=== PATIENT | female | born 1930 | race Caucasian/White ===

== ENCOUNTER 2017-01-15 12:44 | Outpatient (CLI) | payer MEDICAID, MEDICARE, OTHER | END 2017-01-15 12:45 | disposition home or self-care (01) | DX: N18.9 Chronic kidney disease, unspecified (principal) ==

== ENCOUNTER 2017-01-30 13:33 | Observation (INO) | payer MEDICARE, MEDICAID ==
[2017-01-30] MEDS ORDERED: SODIUM CHLORIDE 0.9% 1,000 ML IV ONE (14:29)
[2017-01-30] MEDS ORDERED: CALCIUM GLUCONATE 1000 MG/10 ML VIAL IVP STA (15:20)
[2017-01-30] MEDS ORDERED: SODIUM POLYSTYRENE SULFONATE 15 GM/60 ML BOTTLE PO STA (15:20)
[2017-01-30] MEDS ORDERED: CALCIUM GLUCONATE 1000 MG/10 ML VIAL ONE (15:25)
[2017-01-30] MEDS ORDERED: SODIUM POLYSTYRENE SULFONATE 15 GM/60 ML BOTTLE ONE (15:25)
[2017-01-30] MEDS ORDERED: INSULIN REGULAR HUMAN 100 UNIT/1 ML 10 ML MDV IVP STA (15:52)
[2017-01-30] MEDS ORDERED: DEXTROSE 50% ABBOJECT 25 GM/50 ML SYRINGE IVP STA ×2 (15:52→18:44)
[2017-01-30] MEDS ORDERED: DEXTROSE 50% ABBOJECT 25 GM/50 ML SYRINGE ONE ×3 (16:05→18:43)
[2017-01-30] MEDS ORDERED: INSULIN REGULAR HUMAN 100 UNIT/1 ML 10 ML MDV ONE (16:05)
[2017-01-30] MEDS ORDERED: oxyCODONE 5 MG TABLET PO PRN (20:05)
[2017-01-30] MEDS ORDERED: PROCHLORPERAZINE 10 MG/2 ML VIAL IVP PRN (20:05)
[2017-01-30] MEDS ORDERED: SODIUM CHLORIDE FLUSH 0.9% 10 ML SYRINGE IVP PRN (20:05)
[2017-01-30] MEDS ORDERED: ACETAMINOPHEN 325 MG TABLET PO PRN (20:05)
[2017-01-30] MEDS ORDERED: ONDANSETRON 4 MG/2 ML VIAL IVP PRN (20:05)
[2017-01-30] MEDS ORDERED: DEXTROSE 5%-0.9% NACL 1,000 ML IV SCH (21:00)
[2017-01-30] MEDS: HEPARIN 5,000 UNIT/ML VIAL SUBQ SCH (21:45)
[2017-01-30] MEDS: amLODIPine 5 MG TABLET PO SCH (21:48)
[2017-01-30] MEDS: hydrALAZINE 25 MG TABLET PO SCH (21:48)
[2017-01-30] MEDS: SODIUM CHLORIDE FLUSH 0.9% 10 ML SYRINGE IVP SCH (21:48)
[2017-01-30] MEDS: METOPROLOL TARTRATE 50 MG TABLET PO SCH (21:50)
[2017-01-31] MEDS: SODIUM CHLORIDE FLUSH 0.9% 10 ML SYRINGE IVP SCH ×2 (05:57→15:50)
[2017-01-31] MEDS ORDERED: MAGNESIUM SULFATE 2 GRAM 50 ML IV ONE (06:49)
[2017-01-31] MEDS ORDERED: PANTOPRAZOLE 40 MG TABLET PO SCH (07:00)
[2017-01-31] MEDS: amLODIPine 5 MG TABLET PO SCH (08:35)
[2017-01-31] MEDS: METOPROLOL TARTRATE 50 MG TABLET PO SCH (08:35)
[2017-01-31] MEDS: hydrALAZINE 25 MG TABLET PO SCH (08:35)
[2017-01-31] MEDS: HEPARIN 5,000 UNIT/ML VIAL SUBQ SCH (08:39)
[2017-01-31] MEDS ORDERED: BUDESONIDE NAS SCH (09:00)
[2017-01-31] MEDS ORDERED: ASPIRIN CHEW 81 MG TABLET PO SCH (09:00)
[2017-01-31] MEDS ORDERED: POLYETHYLENE GLYCOL 3350 17 GM PACKET PO SCH (09:00)
[2017-01-31] MEDS ORDERED: CALCIUM CARBONATE CHEW 500 MG TABLET PO SCH ×2 (09:00→17:00)
[2017-01-31] MEDS ORDERED: LORATADINE 10 MG TABLET PO SCH (11:00)
[2017-01-31] MEDS ORDERED: ACETAMINOPHEN 325 MG TABLET PO SCH (11:00)
[2017-01-31] MEDS ORDERED: SODIUM BICARBONATE 650 MG TABLET PO SCH (11:00)
[2017-01-31] MEDS ORDERED: FERROUS SULFATE 325 MG TABLET PO SCH (11:00)
== END 2017-01-31 17:49 ==
DX: R41.82 Altered mental status, unspecified (principal); I12.0 Hypertensive chronic kidney disease with stage 5 chronic kidney disease or end stage renal disease; E87.5 Hyperkalemia; E11.22 Type 2 diabetes mellitus with diabetic chronic kidney disease; N18.5 Chronic kidney disease, stage 5; R44.3 Hallucinations, unspecified; R51 Headache; R45.1 Restlessness and agitation; E11.649 Type 2 diabetes mellitus with hypoglycemia without coma; E86.0 Dehydration; Z66 Do not resuscitate; Z79.82 Long term (current) use of aspirin; Z88.6 Allergy status to analgesic agent; Z88.0 Allergy status to penicillin
CPT/HCPCS: 36415; 70450; 71020; 80048; 80053; 81003; 82310; 83690; 83735; 84100; 85025; 96361; 96365; 96372; 96375; 96376; 99285; A9270; G0378; J1815

== ENCOUNTER 2017-02-07 20:20 | Outpatient (CLI) | payer MEDICARE, MEDICAID | END 2017-02-07 20:21 | disposition home or self-care (01) | DX: N39.0 Urinary tract infection, site not specified (principal) ==

== ENCOUNTER 2017-02-08 13:50 | Outpatient (CLI) | payer MEDICARE, MEDICAID | END 2017-02-08 13:51 | disposition home or self-care (01) | DX: E11.9 Type 2 diabetes mellitus without complications (principal); I50.9 Heart failure, unspecified; N18.9 Chronic kidney disease, unspecified ==

== ENCOUNTER 2017-02-22 17:09 | Outpatient (CLI) | payer MEDICARE, MEDICAID | END 2017-02-22 17:10 | disposition critical access hospital (66) | DX: R10.30 Lower abdominal pain, unspecified (principal) | CPT/HCPCS: A0425; A0429 ==

== ENCOUNTER 2017-02-22 17:14 | Emergency (ER) | payer MEDICARE, MEDICAID | END 2017-02-22 19:48 | disposition home or self-care (01) | DX: S76.012A Strain of muscle, fascia and tendon of left hip, initial encounter (principal); E11.9 Type 2 diabetes mellitus without complications; Z88.0 Allergy status to penicillin; Z79.82 Long term (current) use of aspirin; W19.XXXA Unspecified fall, initial encounter; Z96.643 Presence of artificial hip joint, bilateral ==

== ENCOUNTER 2017-02-23 07:45 | Outpatient (CLI) | payer MEDICARE, MEDICAID | END 2017-02-23 07:46 | disposition home or self-care (01) | DX: E87.5 Hyperkalemia (principal); E11.9 Type 2 diabetes mellitus without complications ==

== ENCOUNTER 2017-02-27 10:19 | Outpatient (CLI) | payer MEDICARE, MEDICAID | END 2017-02-27 10:20 | disposition home or self-care (01) | DX: E87.5 Hyperkalemia (principal) ==

== ENCOUNTER 2017-03-09 09:05 | Outpatient (CLI) | payer MEDICARE, MEDICAID | END 2017-03-09 09:06 | disposition home or self-care (01) | DX: N18.9 Chronic kidney disease, unspecified (principal); D63.1 Anemia in chronic kidney disease ==

== ENCOUNTER 2017-03-26 19:57 | Outpatient (CLI) | payer MEDICARE, MEDICAID | END 2017-03-26 19:58 | disposition home or self-care (01) | DX: N18.9 Chronic kidney disease, unspecified (principal) ==

== ENCOUNTER 2017-03-29 12:15 | Outpatient (CLI) | payer MEDICARE, MEDICAID | END 2017-03-29 12:16 | DX: D64.9 Anemia, unspecified (principal) ==

== ENCOUNTER 2017-04-16 08:00 | Outpatient (CLI) | payer MEDICAID, MEDICARE, OTHER ==
[2017-04-16 14:47] LABS: CREATININE 3.6 mg/dL (0.4-1.0); POTASSIUM 4.6 mmol/L (3.5-5.0)
== END 2017-04-16 08:01 | disposition home or self-care (01) ==
LOC: LAB.R 08:00
DX: N18.9 Chronic kidney disease, unspecified (principal)
CPT/HCPCS: 80048

== ENCOUNTER 2017-06-13 15:20 | Outpatient (CLI) | payer MEDICARE, MEDICAID ==
[2017-06-13 17:42] LABS: BASOPHILS # (AUTO) 0.1 10^3/uL (0.0-0.1); BASOPHILS % (AUTO) 0.9 %; EOSINOPHILS # (AUTO) 0.3 10^3/uL (0.0-0.7); HCT - HEMATOCRIT 27.3 % (37.0-47.0); LYMPHOCYTES # (AUTO) 2.6 10^3/uL (1.5-3.5); LYMPHOCYTES % (AUTO) 26.1 %; MEAN CORPUSCULAR HEMOGLOBIN 32.7 pg (27.0-31.0); MEAN CORPUSCULAR HGB CONC 32.9 g/dL (32.0-36.0); MEAN CORPUSCULAR VOLUME 99.7 fL (81.0-99.0); MEAN PLATELET VOLUME 8.7 fL (7.9-10.8); MONOCYTES # (AUTO) 0.9 10^3/uL (0.0-1.0); MONOCYTES % (AUTO) 8.9 %; NEUTROPHILS # (AUTO) 6.2 10^3/uL (1.5-6.6); NEUTROPHILS % (AUTO) 61.1 %; NUCLEATED RED BLOOD CELLS AUTO 0.1 /100WBC; RED BLOOD COUNT 2.74 10^6/uL (4.20-5.40); RED CELL DISTRIBUTION WIDTH 13.4 % (12.0-15.0); UNCORRECTED WHITE BLOOD COUNT 10.1 x10^3/uL; WHITE BLOOD COUNT 10.1 x10^3/uL (4.8-10.8)
[2017-06-13 18:07] LABS: CREATININE 3.7 mg/dL (0.4-1.0)
[2017-06-13 18:08] LABS: POTASSIUM 6.1 mmol/L (3.5-5.0)
[2017-06-13 18:33] LABS: PHOSPHORUS 4.8 mg/dL (2.5-4.6)
== END 2017-06-13 23:59 | disposition home or self-care (01) ==
LOC: LAB.R 15:20
DX: N05.9 Unspecified nephritic syndrome with unspecified morphologic changes (principal); D50.0 Iron deficiency anemia secondary to blood loss (chronic); E83.30 Disorder of phosphorus metabolism, unspecified; N25.81 Secondary hyperparathyroidism of renal origin
CPT/HCPCS: 80048; 82728; 83540; 83970; 84100; 84466; 85025

== ENCOUNTER 2017-07-11 11:30 | Outpatient (CLI) | payer MEDICARE, MEDICAID ==
[2017-07-11 12:06] LABS: HCT - HEMATOCRIT 30.8 % (37.0-47.0); HGB - HEMOGLOBIN 10.4 g/dL (12.0-16.0); MEAN CORPUSCULAR HEMOGLOBIN 32.6 pg (27.0-31.0); MEAN CORPUSCULAR HGB CONC 33.6 g/dL (32.0-36.0); MEAN CORPUSCULAR VOLUME 96.9 fL (81.0-99.0); MEAN PLATELET VOLUME 8.7 fL (7.9-10.8); RED BLOOD COUNT 3.18 10^6/uL (4.20-5.40); RED CELL DISTRIBUTION WIDTH 13.6 % (12.0-15.0); WHITE BLOOD COUNT 10.7 x10^3/uL (4.8-10.8)
[2017-07-11 12:38] LABS: CALCIUM 6.6 mg/dL (8.5-10.3); CREATININE 2.8 mg/dL (0.4-1.0); MAGNESIUM 1.3 mg/dL (1.7-2.8)
[2017-07-11 12:39] LABS: POTASSIUM 2.4 mmol/L (3.5-5.0)
== END 2017-07-11 11:31 | disposition home or self-care (01) ==
LOC: LAB.R 11:30
DX: N18.9 Chronic kidney disease, unspecified (principal); D63.1 Anemia in chronic kidney disease
CPT/HCPCS: 80048; 83735; 84100

== ENCOUNTER 2017-07-25 08:00 | Outpatient (CLI) | payer MEDICARE, MEDICAID ==
[2017-07-25 23:56] LABS: CALCIUM 7.2 mg/dL (8.5-10.3); CREATININE 2.4 mg/dL (0.4-1.0); POTASSIUM 2.6 mmol/L (3.5-5.0)
== END 2017-07-25 08:01 | disposition home or self-care (01) ==
LOC: LAB.R 08:00
DX: E87.6 Hypokalemia (principal)
CPT/HCPCS: 80048

== ENCOUNTER 2017-08-01 19:30 | Outpatient (CLI) | payer MEDICARE, MEDICAID ==
[2017-08-01 23:06] LABS: CALCIUM 8.5 mg/dL (8.5-10.3); CREATININE 2.9 mg/dL (0.4-1.0)
== END 2017-08-01 19:31 | disposition home or self-care (01) ==
LOC: LAB.R 19:30
PROVIDERS: ATTEND Internal Medicine
DX: I10 Essential (primary) hypertension (principal)
CPT/HCPCS: 80048

== ENCOUNTER 2017-08-17 13:00 | Outpatient (CLI) | payer MEDICARE, MEDICAID ==
[2017-08-17 15:46] LABS: CALCIUM 8.2 mg/dL (8.5-10.3); CREATININE 3.4 mg/dL (0.4-1.0)
== END 2017-08-17 13:01 | disposition home or self-care (01) ==
LOC: LAB.R 13:00
DX: N18.9 Chronic kidney disease, unspecified (principal); R79.89 Other specified abnormal findings of blood chemistry
CPT/HCPCS: 80048

== ENCOUNTER 2017-08-24 10:18 | Outpatient (CLI) | payer MEDICARE, MEDICAID ==
[2017-08-24 09:55] LABS: CALCIUM 8.1 mg/dL (8.5-10.3); CREATININE 3.6 mg/dL (0.4-1.0); POTASSIUM 4.4 mmol/L (3.5-5.0)
== END 2017-08-24 10:19 | disposition home or self-care (01) ==
LOC: LAB.R 10:18
DX: E87.6 Hypokalemia (principal)
CPT/HCPCS: 80048

== ENCOUNTER 2017-08-27 14:54 | Outpatient (CLI) | payer MEDICARE, MEDICAID ==
--- NOTE | 2017-08-27 15:49 | XRAY Report ---
RIGHT HIP AND PELVIS: 08/27/2017 CLINICAL INDICATION: Pain. COMPARISON: 02/22/2017 FINDINGS: Frontal view of the hips and pelvis and frogleg lateral view of the right hip demonstrate fractures through the right inferior pubic ramus, one at the symphysis, and one extending through the lateral portion just below the level of the acetabular prosthesis of the right hip replacement. The re is no evidence of hardware complication. Left hip replacement appears unremarkable where visualiz ed. No additional pelvic fracture is appreciated. IMPRESSION: MINIMALLY DISPLACED FRACTURES THROUGH THE RIGHT INFERIOR PUBIC RAMUS, NEW FROM PREVIOUS. RESULTS CALLED TO DR. ROCHA ON 08/27/2017 AT 1535 HOURS. JOB #: [id number] EXT JOB #:[id number]
== END 2017-08-27 14:55 | disposition home or self-care (01) ==
LOC: DI 14:54
PROVIDERS: ATTEND Specialist
DX: S32.501A Unspecified fracture of right pubis, initial encounter for closed fracture (principal)

== ENCOUNTER 2017-10-04 10:04 | Emergency (ER) | payer MEDICARE, MEDICAID ==
[2017-10-04 12:43] LABS: BASOPHILS # (AUTO) 0.1 10^3/uL (0.0-0.1); BASOPHILS % (AUTO) 0.9 %; EOSINOPHILS # (AUTO) 0.2 10^3/uL (0.0-0.7); EOSINOPHILS % (AUTO) 1.6 %; HCT - HEMATOCRIT 40.8 % (37.0-47.0); HGB - HEMOGLOBIN 13.2 g/dL (12.0-16.0); LYMPHOCYTES # (AUTO) 2.8 10^3/uL (1.5-3.5); LYMPHOCYTES % (AUTO) 22.2 %; MEAN CORPUSCULAR HEMOGLOBIN 31.4 pg (27.0-31.0); MEAN CORPUSCULAR HGB CONC 32.3 g/dL (32.0-36.0); MEAN PLATELET VOLUME 8.4 fL (7.9-10.8); NEUTROPHILS # (AUTO) 8.5 10^3/uL (1.5-6.6); NEUTROPHILS % (AUTO) 67.3 %; RED CELL DISTRIBUTION WIDTH 15.6 % (12.0-15.0); UNCORRECTED WHITE BLOOD COUNT 12.6 x10^3/uL; WHITE BLOOD COUNT 12.6 x10^3/uL (4.8-10.8)
[2017-10-04 13:00] LABS: BILIRUBIN,TOTAL 0.6 mg/dL (0.2-1.0); CALCIUM 9.1 mg/dL (8.5-10.3); CREATININE 3.2 mg/dL (0.4-1.0); POTASSIUM 3.8 mmol/L (3.5-5.0); TOTAL PROTEIN 7.1 g/dL (6.7-8.2)
--- NOTE | 2017-10-04 13:10 | CT Preliminary Report ---
Exam: CT HEAD W/O IMPRESSION: Generalized age-related cortical atrophic changes without evidence of acute intracranial abnormality. [facility] SITE ID: [id number]
--- NOTE | 2017-10-04 13:12 | ED Physician Documentation ---
History of Present Illness - Stated complaint Stated Complaint: GLF - Chief complaint Chief Complaint: General PD PAST MEDICAL HISTORY - Past Medical History Cardiovascular: Other Endocrine/Autoimmune: Type 2 diabetes : Renal insuffiency HEENT: Chronic hearing loss Musculoskeletal: Osteoarthritis - Past Surgical History Past Surgical History: Yes General: Cholecystectomy Ortho: Hip replacement Cardiovascular: Vascular surgery HEENT: Tonsil/Adenoidectomy - Present Medications Home Medications: Ambulatory Orders Medication Instructions Recorded Confirmed Aspirin [Children's Aspirin] 81 mg PO BID 03/03/14 10/04/17 Furosemide [Lasix] 80 mg PO BID 03/03/14 10/04/17 Metoprolol Tartrate 50 mg PO BID 03/03/14 10/04/17 Acetaminophen 650 mg PO BID 01/31/17 10/04/17 Calcium Carbonate [Tums (Calcium 2,000 mg PO DAILY@1700 01/31/17 10/04/17 Carbonate 500mg)] Calcium Carbonate/Vitamin D3 1 tab PO BID 01/31/17 10/04/17 [Oyster Shell 500-Vit D3 200 Tb] Cholecalciferol (Vitamin D3) 1,000 units PO DAILY 01/31/17 10/04/17 [Vitamin D3] Ferrous Sulfate 325 mg PO DAILY 01/31/17 10/04/17 Loratadine [Claritin] 10 mg PO DAILY 01/31/17 10/04/17 Gabapentin 100 mg PO DAILY 02/22/17 10/04/17 Tramadol HCl [Ultram] 50 mg PO DAILY 10/04/17 10/04/17 - Allergies Allergies/Adverse Reactions: Allergies Allergy/AdvReac Type Severity Reaction Status Date / Time Penicillins Allergy Rash Verified 02/22/17 18:12 - Social History Does the pt smoke?: No Smoking Status: Never smoker Does the pt drink ETOH?: No Does the pt have substance abuse?: No - POLST Patient has POLST: Yes Results - Vitals Vitals: Vital Signs - 24 hr 10/04/17 10/04/17 10/04/17 10:12 11:11 12:04 Temperature 36.3 C L Heart Rate 69 62 67 Respiratory 16 16 15 Rate Blood Pressure 211/87 H 212/66 H 214/64 H O2 Saturation 100 96 98 Oxygen O2 Source Room air - Labs Labs: Laboratory Tests 10/04/17 10/04/17 12:33 12:33 WBC 12.6 H RBC 4.20 Hgb 13.2 Hct 40.8 MCV 97.0 MCH 31.4 H MCHC 32.3 RDW 15.6 H Plt Count 240 MPV 8.4 Neut # 8.5 H Lymph # 2.8 [place] # 1.0 Eos # 0.2 Baso # 0.1 Absolute Nucleated RBC 0.01 Nucleated RBC % 0.0 Sodium 140 Potassium 3.8 Chloride 106 Carbon Dioxide 23 Anion Gap 11.0 BUN 48 H Creatinine 3.2 H Estimated GFR (MDRD) 14 L Glucose 86 Calcium 9.1 Total Bilirubin 0.6 AST 29 ALT 17 Alkaline Phosphatase 157 H Total Protein 7.1 Albumin 3.5 Globulin 3.6 Albumin/Globulin Ratio 1.0 Lipase 12 L
--- NOTE | 2017-10-04 13:13 | CT Report ---
EXAM: CT HEAD EXAM DATE: 10/04/2017 01:00 PM. CLINICAL HISTORY: Acute headache. COMPARISON: 01/30/2017. TECHNIQUE: Multiaxial CT images were obtained from the foramen magnum to the vertex. IV contrast: Non e. Reformats: Coronal. In accordance with CT protocol optimization, one or more of the following dose reduction techniques w ere utilized for this exam: automated exposure control, adjustment of mA and/or KV based on patient s ize, or use of iterative reconstructive technique. FINDINGS: Parenchyma: No intraparenchymal hemorrhage. No evidence of mass, midline shift, or CT findings of acu te infarction. Goodwin-white differentiation is distinct. Diffuse chronic microangiopathic white matter changes. Extraaxial Spaces: Normal for age. No subdural or epidural collections. Ventricles: The ventricles and cortical sulci are enlarged, consistent with age-related tissue loss. Sinuses and orbits: Imaged paranasal sinuses, orbits, and mastoids show no significant abnormality. Bones: Unremarkable. Other: None. IMPRESSION: Generalized age-related cortical atrophic changes without evidence of acute intracranial abnormality. [facility] Referring Provider Line: [phone] SITE ID: [id number]
--- NOTE | 2017-10-04 13:15 | ED Physician Documentation ---
PD HPI Fall - Stated complaint Stated Complaint: GLF - Chief complaint Chief Complaint: General - History obtained from History obtained from: Patient - History of Present Illness Mechanism of injury: Slipped Fall distance: Sitting position Where injury occurred: Other (assisted living facility.) Timing - onset: Yesterday Injury(ies) location: Right Lower Extremity Quality of pain: Pain Associated symptoms: No: LOC, Neck pain, Nausea / vomiting Worsens with: Movement - Additional information Additional information: The patient is a very pleasant 87-year-old female who arrives via ambulance for evaluation after a fall that occurred yesterday when transferring to her wheelchair. She reports having a sudden brief headache while sitting in the dining room, and then felt lightheaded when transferring to her wheelchair. She fell backwards into the chair. She denies losing consciousness, but presents now because of pain in her right hip. She has past history of pelvic fracture, and is status post bilateral total hip replacements. She reports having intermittent "dizzy spells." She currently denies headache, chest pain, shortness of breath, nausea, vomiting, or dysuria. She usually uses a walker when ambulating. Review of Systems Constitutional: denies: Fever Ears: denies: Tinnitus/ringing Nose: denies: Congestion Throat: denies: Sore throat Cardiac: denies: Chest pain / pressure Respiratory: denies: Dyspnea, Cough GI: denies: Abdominal Pain, Nausea, Vomiting : denies: Dysuria Skin: denies: Rash Musculoskeletal: reports: Extremity pain. denies: Neck pain, Back pain Neurologic: denies: Focal weakness, Numbness, Altered mental status, Headache, LOC PD PAST MEDICAL HISTORY - Past Medical History Cardiovascular: Other Endocrine/Autoimmune: Type 2 diabetes : Renal insuffiency HEENT: Chronic hearing loss Musculoskeletal: Osteoarthritis - Past Surgical History Past Surgical History: Yes General: Cholecystectomy Ortho: Hip replacement Cardiovascular: Vascular surgery HEENT: Tonsil/Adenoidectomy - Present Medications Home Medications: Ambulatory Orders Medication Instructions Recorded Confirmed Aspirin [Children's Aspirin] 81 mg PO BID 03/03/14 10/04/17 Furosemide [Lasix] 80 mg PO BID 03/03/14 10/04/17 Metoprolol Tartrate 50 mg PO BID 03/03/14 10/04/17 Acetaminophen 650 mg PO BID 01/31/17 10/04/17 Calcium Carbonate [Tums (Calcium 2,000 mg PO DAILY@1700 01/31/17 10/04/17 Carbonate 500mg)] Calcium Carbonate/Vitamin D3 1 tab PO BID 01/31/17 10/04/17 [Oyster Shell 500-Vit D3 200 Tb] Cholecalciferol (Vitamin D3) 1,000 units PO DAILY 01/31/17 10/04/17 [Vitamin D3] Ferrous Sulfate 325 mg PO DAILY 01/31/17 10/04/17 Loratadine [Claritin] 10 mg PO DAILY 01/31/17 10/04/17 Gabapentin 100 mg PO DAILY 02/22/17 10/04/17 Tramadol HCl [Ultram] 50 mg PO DAILY 10/04/17 10/04/17 cephALEXin [Cephalexin] 500 mg PO TID #15 tablet 10/04/17 - Allergies Allergies/Adverse Reactions: Allergies Allergy/AdvReac Type Severity Reaction Status Date / Time Penicillins Allergy Rash Verified 02/22/17 18:12 - Living Situation Living Arrangement: reports: [facility] - Social History Does the pt smoke?: No Smoking Status: Never smoker Does the pt drink ETOH?: No Does the pt have substance abuse?: No - POLST Patient has POLST: Yes PD ED PE NORMAL - Vitals Vital signs reviewed: Yes (hypertensive) - General General: Alert and oriented X 3, Other (Frail, pleasant, elderly female.) - HEENT HEENT: Atraumatic, EOMI, Pharynx benign - Neck Neck: No bony TTP, No JVD - Cardiac Cardiac: RRR, No murmur - Respiratory Respiratory: No respiratory distress, Clear bilaterally - Abdomen Abdomen: Soft, Non tender - Back Back: No CVA TTP, No spinal TTP - Derm Derm: No rash - Extremities Extremities: No deformity, No edema, No calf tenderness / cord, Other (There is mild tenderness to palpation at the posterior aspect of the right hip. There is no ecchymosis, and she is able to flex and extend, as well as internally and externally rotated left hip.) - Neuro Neuro: Alert and oriented X 3, No motor deficit, No sensory deficit, Normal speech Results - Vitals Vitals: Oxygen O2 Source Room air - EKG (time done) 10:25 Rate: Rate (enter#) (67) Rhythm: NSR [place]: LAD Intervals: LBBB Compare to prior EKG: Old EKG unavailable Computer interpretation: Agree with computer - Labs Labs: Microbiology 10/04/17 12:00 Urine Culture - Final Urine,Clean Catch LESS THAN 10,000 COLONIES/ML polymicrobial growth including potential pathogens. This is suggestive of skin or other contamination. Laboratory Tests 10/04/17 10/04/17 10/04/17 12:00 12:33 12:33 WBC 12.6 H RBC 4.20 Hgb 13.2 Hct 40.8 MCV 97.0 MCH 31.4 H MCHC 32.3 RDW 15.6 H Plt Count 240 MPV 8.4 Neut # 8.5 H Lymph # 2.8 [place] # 1.0 Eos # 0.2 Baso # 0.1 Absolute Nucleated RBC 0.01 Nucleated RBC % 0.0 Sodium 140 Potassium 3.8 Chloride 106 Carbon Dioxide 23 Anion Gap 11.0 BUN 48 H Creatinine 3.2 H Estimated GFR (MDRD) 14 L Glucose 86 Calcium 9.1 Total Bilirubin 0.6 AST 29 ALT 17 Alkaline Phosphatase 157 H Total Protein 7.1 Albumin 3.5 Globulin 3.6 Albumin/Globulin Ratio 1.0 Lipase 12 L Urine Color YELLOW Urine Clarity CLEAR Urine pH 5.5 Ur Specific [place] <=1.005 Urine Protein NEGATIVE Urine Glucose (UA) NEGATIVE Urine Ketones NEGATIVE Urine Occult Blood NEGATIVE Urine Nitrite NEGATIVE Urine Bilirubin NEGATIVE Urine Urobilinogen 0.2 (NORMAL) Ur Leukocyte Esterase TRACE H Urine RBC 0-5 Urine WBC 11-25 H Urine WBC Clumps PRESENT Ur Epithelial Cells FEW Transitional Ur Squamous Epith Cells FEW Squamous Urine Bacteria Rare Urine Mucus Few Strands Ur Microscopic Review INDICATED Urine Culture Comments INDICATED - Rads (name of study) head CT w/o Radiology: Prelim report reviewed, EMP read contemporaneously, See rad report ( Generalized age-related cortical atrophic changes without evidence of acute intracranial abnormality.) right hip Radiology: Prelim report reviewed, EMP read contemporaneously, See rad report ( No acute disease.) PD MEDICAL DECISION MAKING - ED course Complexity details: reviewed old records, reviewed results, re-evaluated patient , considered differential, d/w patient ED course: The patient's presentation is significant for right hip pain after a low-impact fall while transferring to her wheelchair. X-ray reveals no acute fracture of the hip or pelvis. The patient does demonstrate ability to stand and ambulate with the assistance of a walker. Given her history of brief severe headache just prior to the fall, a head CT was performed. It reveals no acute intracranial abnormality. Her urinalysis is positive for pyuria and bacteriuria , consistent with urinary tract infection. Her presentation does not suggest pyelonephritis or sepsis. In addition she remained hypertensive throughout her time in the emergency department. She has a history of hypertension for which she is treated with metoprolol. Treatment in the emergency department included administration of metoprolol 50 mg orally, and cephalexin 500 mg orally. She is being discharged with prescription for cephalexin. I discussed with her the results of her workup, antibiotic treatment and outpatient follow-up, as well as potentially worrisome signs or symptoms that should prompt reevaluation in the emergency department. Departure - Departure Disposition: 01 Home, Self Care Clinical Impression: Fall Qualifiers: Encounter type: initial encounter Qualified Code(s): W19.XXXA - Unspecified fall, initial encounter UTI (urinary tract infection) Qualifiers: Urinary tract infection type: acute cystitis Hematuria presence: without hematuria Qualified Code(s): N30.00 - Acute cystitis without hematuria Hypertension Qualifiers: Hypertension type: unspecified secondary hypertension Qualified Code(s): I15.9 - Secondary hypertension, unspecified Condition: Stable Instructions: ED UTI Cystitis Female Follow-Up: Roberto Kelly MD [Primary Care Provider] - Prescriptions: cephALEXin [Cephalexin] 500 mg PO TID #15 tablet Comments: Drink plenty of fluids, including cranberry juice. Take cephalexin 3 times daily as prescribed. Follow up with your primary physician within 2 weeks. Call to schedule an appointment. Return to the emergency department if you develop increasing abdominal pain, fever with shaking chills, persistent vomiting, or otherwise worsening symptoms. Discharge Date/Time: 10/04/17 15:45
--- NOTE | 2017-10-04 13:34 | XRAY Preliminary Report ---
Exam: XR HIP W/PELVIS 2-3V RT IMPRESSION: No acute disease. [facility] SITE ID: [id number]
--- NOTE | 2017-10-04 13:36 | XRAY Report ---
EXAM: RIGHT HIP AND PELVIS RADIOGRAPHY EXAM DATE: 10/04/2017 01:15 PM. HISTORY: Right hip pain after falling. COMPARISONS: 08/27/2017. TECHNIQUE: 1 view of the pelvis and 1 view of the hip. FINDINGS: Bones: Osteopenia. Previously described fracture of medial right inferior ischial ramus. No acute fra cture or other bone lesion. Joints: Bilateral total hip prostheses in anatomic alignment. No abnormal lucency associated with the prostheses. Unremarkable SI joints and pubic symphysis. Degenerative changes in lower lumbar spine. Soft Tissues: Unremarkable. IMPRESSION: No acute disease. [facility] Referring Provider Line: [phone] SITE ID: [id number]
[2017-10-04 14:00] LABS: BILIRUBIN,URINE NEGATIVE (NEGATIVE); PH,URINE 5.5 PH (5.0-7.5)
[2017-10-04 14:01] LABS: UA w/ MICROSCOPIC CHARGE YES
[2017-10-04 14:12] LABS: UR CULTURE IF IND INDICATED
[2017-10-04] MEDS: NITROFURANTOIN MACRO 100 MG CAPSULE PO STA (14:38)
[2017-10-04] MEDS ORDERED: NITROFURANTOIN MACRO 100 MG CAPSULE PO ONE (14:41)
[2017-10-04] MEDS: METOPROLOL TARTRATE 50 MG TABLET PO STA (15:01)
[2017-10-04] MEDS: cephALEXin 250 MG CAPSULE PO STA (15:01)
[2017-10-04] MEDS ORDERED: METOPROLOL TARTRATE 50 MG TABLET ONE (15:05)
[2017-10-04] MEDS ORDERED: cephALEXin 250 MG CAPSULE PO ONE (15:05)
[2017-10-04 15:22] VITALS: BP 205/84
== END 2017-10-04 15:45 | disposition home or self-care (01) ==
LOC: ED 10:04
DX: N30.00 Acute cystitis without hematuria (principal); I15.9 Secondary hypertension, unspecified; E11.9 Type 2 diabetes mellitus without complications; Z96.643 Presence of artificial hip joint, bilateral; Z91.81 History of falling; Z79.82 Long term (current) use of aspirin
CPT/HCPCS: 36415; 70450; 80053; 81001; 81003; 83690; 85025; 87086; 93005; 99283; 99284

== ENCOUNTER 2018-01-21 08:00 | Outpatient (CLI) | payer OTHER, MEDICARE, MEDICAID ==
[2018-01-21 18:15] LABS: CALCIUM 8.4 mg/dL (8.5-10.3); CREATININE 2.6 mg/dL (0.4-1.0)
[2018-01-21 18:39] LABS: BASOPHILS % (AUTO) 0.5 %; EOSINOPHILS # (AUTO) 0.2 10^3/uL (0.0-0.7); EOSINOPHILS % (AUTO) 2.6 %; LYMPHOCYTES # (AUTO) 2.7 10^3/uL (1.5-3.5); LYMPHOCYTES % (AUTO) 30.7 %; MEAN CORPUSCULAR HEMOGLOBIN 30.6 pg (27.0-31.0); MEAN CORPUSCULAR HGB CONC 32.4 g/dL (32.0-36.0); MEAN CORPUSCULAR VOLUME 94.6 fL (81.0-99.0); MEAN PLATELET VOLUME 9.2 fL (7.9-10.8); MONOCYTES # (AUTO) 0.9 10^3/uL (0.0-1.0); MONOCYTES % (AUTO) 10.4 %; NEUTROPHILS % (AUTO) 55.8 %; PLT - PLATELET COUNT 226 10^3/uL (130-450); RED BLOOD COUNT 3.26 10^6/uL (4.20-5.40); RED CELL DISTRIBUTION WIDTH 15.5 % (12.0-15.0); WHITE BLOOD COUNT 8.9 x10^3/uL (4.8-10.8)
== END 2018-01-21 08:01 | disposition home or self-care (01) ==
LOC: LAB.R 08:00
DX: E11.9 Type 2 diabetes mellitus without complications (principal); D63.1 Anemia in chronic kidney disease
CPT/HCPCS: 80048; 83540; 84466; 85025

== ENCOUNTER 2018-03-09 08:00 | Outpatient (CLI) | payer MEDICARE, MEDICAID ==
[2018-03-09 15:59] LABS: BASOPHILS % (AUTO) 0.3 %; EOSINOPHILS # (AUTO) 0.2 10^3/uL (0.0-0.7); EOSINOPHILS % (AUTO) 2.8 %; HGB - HEMOGLOBIN 10.3 g/dL (12.0-16.0); LYMPHOCYTES # (AUTO) 1.4 10^3/uL (1.5-3.5); LYMPHOCYTES % (AUTO) 18.4 %; MEAN PLATELET VOLUME 8.5 fL (7.9-10.8); MONOCYTES # (AUTO) 0.6 10^3/uL (0.0-1.0); MONOCYTES % (AUTO) 8.5 %; NEUTROPHILS # (AUTO) 5.2 10^3/uL (1.5-6.6); PLT - PLATELET COUNT 197 10^3/uL (130-450); RED BLOOD COUNT 3.33 10^6/uL (4.20-5.40); RED CELL DISTRIBUTION WIDTH 18.9 % (12.0-15.0); WHITE BLOOD COUNT 7.4 x10^3/uL (4.8-10.8)
[2018-03-09 16:09] LABS: CREATININE 3.4 mg/dL (0.4-1.0)
== END 2018-03-09 08:01 | disposition home or self-care (01) ==
LOC: LAB.R 08:00
DX: N18.5 Chronic kidney disease, stage 5 (principal)
CPT/HCPCS: 80048; 85025

== ENCOUNTER 2018-03-25 08:00 | Outpatient (CLI) | payer MEDICARE, MEDICAID ==
[2018-03-25 20:18] LABS: CALCIUM 7.6 mg/dL (8.5-10.3); CREATININE 3.3 mg/dL (0.4-1.0)
== END 2018-03-25 08:01 | disposition home or self-care (01) ==
LOC: LAB.R 08:00
DX: N18.9 Chronic kidney disease, unspecified (principal); E87.5 Hyperkalemia
CPT/HCPCS: 80048

== ENCOUNTER 2018-04-01 08:00 | Outpatient (CLI) | payer MEDICARE, MEDICAID ==
[2018-04-01 19:12] LABS: BILIRUBIN,URINE NEGATIVE (NEGATIVE); GLUCOSE, URINE (UA) NEGATIVE (NEGATIVE); KETONES,URINE (UA) NEGATIVE (NEGATIVE); LEUKOCYTE ESTERASE, URINE LARGE (NEGATIVE); NITRITE,URINE NEGATIVE (NEGATIVE); OCCULT BLOOD,URINE SMALL (NEGATIVE); PH,URINE 5.5 PH (5.0-7.5); PROTEIN,URINE 30 mg/dL (NEGATIVE); UROBILINOGEN,URINE 0.2 (NORMAL) E.U./dL (NORMAL)
[2018-04-01 19:21] LABS: CLARITY,URINE CLOUDY (CLEAR)
[2018-04-01 19:39] LABS: SQUAMOUS EPITHELIAL CELL,UR NONE SEEN (<= Few)
[2018-04-01 19:40] LABS: BACTERIA,URINE Moderate /HPF (None Seen)
== END 2018-04-01 08:01 | disposition home or self-care (01) ==
LOC: LAB.R 08:00
DX: N39.0 Urinary tract infection, site not specified (principal)
CPT/HCPCS: 81001; 81003; 87086

== ENCOUNTER 2018-04-11 15:47 | Outpatient (CLI) | payer MEDICARE, MEDICAID ==
[2018-04-11 16:03] LABS: BASOPHILS % (AUTO) 0.3 %; EOSINOPHILS # (AUTO) 0.2 10^3/uL (0.0-0.7); EOSINOPHILS % (AUTO) 1.7 %; HGB - HEMOGLOBIN 10.3 g/dL (12.0-16.0); LYMPHOCYTES # (AUTO) 1.8 10^3/uL (1.5-3.5); LYMPHOCYTES % (AUTO) 16.3 %; MEAN CORPUSCULAR HEMOGLOBIN 30.3 pg (27.0-31.0); MEAN CORPUSCULAR HGB CONC 31.7 g/dL (32.0-36.0); MEAN CORPUSCULAR VOLUME 95.5 fL (81.0-99.0); MONOCYTES # (AUTO) 1.1 10^3/uL (0.0-1.0); MONOCYTES % (AUTO) 9.7 %; NEUTROPHILS # (AUTO) 8.1 10^3/uL (1.5-6.6); PLT - PLATELET COUNT 214 10^3/uL (130-450); RED BLOOD COUNT 3.39 10^6/uL (4.20-5.40); RED CELL DISTRIBUTION WIDTH 15.6 % (12.0-15.0); WHITE BLOOD COUNT 11.2 x10^3/uL (4.8-10.8)
[2018-04-11 16:24] LABS: CALCIUM 7.2 mg/dL (8.5-10.3); CREATININE 3.7 mg/dL (0.4-1.0)
== END 2018-04-11 15:48 | disposition home or self-care (01) ==
LOC: LAB 15:47
PROVIDERS: ATTEND Family Medicine
DX: E87.5 Hyperkalemia (principal); D63.1 Anemia in chronic kidney disease
CPT/HCPCS: 36415; 80048; 85025

== ENCOUNTER 2018-05-02 08:00 | Outpatient (CLI) | payer MEDICARE, MEDICAID ==
[2018-05-02 20:00] LABS: BASOPHILS # (AUTO) 0.1 10^3/uL (0.0-0.1); BASOPHILS % (AUTO) 0.7 %; EOSINOPHILS # (AUTO) 0.2 10^3/uL (0.0-0.7); EOSINOPHILS % (AUTO) 1.6 %; HGB - HEMOGLOBIN 8.9 g/dL (12.0-16.0); LYMPHOCYTES # (AUTO) 1.9 10^3/uL (1.5-3.5); MEAN CORPUSCULAR HEMOGLOBIN 31.7 pg (27.0-31.0); MEAN CORPUSCULAR HGB CONC 32.5 g/dL (32.0-36.0); MEAN CORPUSCULAR VOLUME 97.7 fL (81.0-99.0); MEAN PLATELET VOLUME 8.5 fL (7.9-10.8); MONOCYTES # (AUTO) 1.2 10^3/uL (0.0-1.0); MONOCYTES % (AUTO) 10.7 %; NEUTROPHILS # (AUTO) 7.4 10^3/uL (1.5-6.6); PLT - PLATELET COUNT 236 10^3/uL (130-450); RED BLOOD COUNT 2.81 10^6/uL (4.20-5.40); RED CELL DISTRIBUTION WIDTH 15.4 % (12.0-15.0); WHITE BLOOD COUNT 10.8 x10^3/uL (4.8-10.8)
== END 2018-05-02 08:01 ==
LOC: LAB.R 08:00
DX: N05.9 Unspecified nephritic syndrome with unspecified morphologic changes (principal); D63.1 Anemia in chronic kidney disease
CPT/HCPCS: 80048; 85025

== ENCOUNTER → 2018-05-25 | Outpatient (CLI) | payer MEDICARE, MEDICAID ==
[2018-06-04 09:43] LABS: BASOPHILS % (AUTO) 0.7 %; HGB - HEMOGLOBIN 9.7 g/dL (12.0-16.0); LYMPHOCYTES # (AUTO) 1.7 10^3/uL (1.5-3.5); MEAN CORPUSCULAR HEMOGLOBIN 31.4 pg (27.0-31.0); MEAN CORPUSCULAR HGB CONC 31.4 g/dL (32.0-36.0); MEAN CORPUSCULAR VOLUME 100.2 fL (81.0-99.0); MEAN PLATELET VOLUME 8.6 fL (7.9-10.8); MONOCYTES # (AUTO) 0.8 10^3/uL (0.0-1.0); MONOCYTES % (AUTO) 12.3 %; NEUTROPHILS # (AUTO) 3.5 10^3/uL (1.5-6.6); PLT - PLATELET COUNT 263 10^3/uL (130-450); RED BLOOD COUNT 3.09 10^6/uL (4.20-5.40); RED CELL DISTRIBUTION WIDTH 16.2 % (12.0-15.0); WHITE BLOOD COUNT 6.2 x10^3/uL (4.8-10.8)
[2018-06-04 09:44] LABS: CALCIUM 7.7 mg/dL (8.5-10.3); CREATININE 2.9 mg/dL (0.4-1.0); EOSINOPHILS # (AUTO) 0.2 10^3/uL (0.0-0.7)
== END ==
LOC: LAB.R 15:35
DX: E87.6 Hypokalemia (principal); D63.1 Anemia in chronic kidney disease
CPT/HCPCS: 80048; 85025

== ENCOUNTER 2018-05-26 08:00 | Outpatient (CLI) | payer MEDICARE, MEDICAID ==
[2018-05-26 13:33] LABS: BILIRUBIN,URINE NEGATIVE (NEGATIVE); GLUCOSE, URINE (UA) NEGATIVE (NEGATIVE); KETONES,URINE (UA) NEGATIVE (NEGATIVE); LEUKOCYTE ESTERASE, URINE NEGATIVE (NEGATIVE); NITRITE,URINE NEGATIVE (NEGATIVE); OCCULT BLOOD,URINE NEGATIVE (NEGATIVE); PROTEIN,URINE NEGATIVE (NEGATIVE); UROBILINOGEN,URINE 0.2 (NORMAL) E.U./dL (NORMAL)
[2018-05-26 13:34] LABS: CLARITY,URINE CLEAR (CLEAR)
== END 2018-05-26 08:01 | disposition home or self-care (01) ==
LOC: LAB.R 08:00
DX: E87.6 Hypokalemia (principal); D63.1 Anemia in chronic kidney disease
CPT/HCPCS: 80048; 81001; 81003; 85025; 87086

== ENCOUNTER 2018-06-04 15:50 | Outpatient (CLI) | payer MEDICARE, MEDICAID ==
[2018-06-04 19:45] LABS: BASOPHILS # (AUTO) 0.1 10^3/uL (0.0-0.1); BASOPHILS % (AUTO) 1.3 %; EOSINOPHILS # (AUTO) 0.3 10^3/uL (0.0-0.7); EOSINOPHILS % (AUTO) 2.9 %; HGB - HEMOGLOBIN 10.3 g/dL (12.0-16.0); LYMPHOCYTES # (AUTO) 1.5 10^3/uL (1.5-3.5); LYMPHOCYTES % (AUTO) 16.1 %; MEAN CORPUSCULAR HEMOGLOBIN 31.5 pg (27.0-31.0); MEAN CORPUSCULAR HGB CONC 30.8 g/dL (32.0-36.0); MEAN CORPUSCULAR VOLUME 102.1 fL (81.0-99.0); MEAN PLATELET VOLUME 8.9 fL (7.9-10.8); MONOCYTES % (AUTO) 11.1 %; NEUTROPHILS # (AUTO) 6.4 10^3/uL (1.5-6.6); NEUTROPHILS % (AUTO) 68.6 %; PLT - PLATELET COUNT 269 10^3/uL (130-450); RED BLOOD COUNT 3.26 10^6/uL (4.20-5.40); RED CELL DISTRIBUTION WIDTH 16.9 % (12.0-15.0); WHITE BLOOD COUNT 9.3 x10^3/uL (4.8-10.8)
[2018-06-04 20:23] LABS: CALCIUM 7.5 mg/dL (8.5-10.3); CREATININE 2.5 mg/dL (0.4-1.0)
== END 2018-06-04 15:51 | disposition home or self-care (01) ==
LOC: LAB.R 15:50
DX: N18.9 Chronic kidney disease, unspecified (principal)
CPT/HCPCS: 80048; 85025

== ENCOUNTER 2018-06-05 16:07 | Outpatient (CLI) | payer MEDICARE, MEDICAID | END 2018-06-05 16:08 | disposition critical access hospital (66) | LOC: EMS 16:07 | PROVIDERS: ATTEND Surgery | DX: R07.9 Chest pain, unspecified (principal) | CPT/HCPCS: A0425; A0427; A0999 ==

== ENCOUNTER 2018-06-05 16:14 | Observation (INO) | payer MEDICARE, MEDICAID ==
--- NOTE | 2018-06-05 16:52 | ED Physician Documentation ---
PD HPI CHEST PAIN - Stated complaint Stated Complaint: CP - Chief complaint Chief Complaint: Cardiac - History obtained from History obtained from: Patient, EMS - History of Present Illness Timing - onset: How many days ago (2) Timing - onset during: Rest Timing - details: Abrupt onset, Intermittant Quality: Pressure, Tightness Location: Right chest Worsened by: Inspiration Associated symptoms: No: Shortness of air Similar symptoms before: Has not had sx before Recently seen: Not recently seen - Additional information Additional information: Patient is an 87 year old female presenting to the emergency department for chest pain. Patient states that two days ago she was talking with a friend who has cancer and is contemplating physician assisted suicide. Patient reports that since that time she has had intermittent chest pain. Patient states that it gets worse with a deep breath. Review of Systems Constitutional: denies: Fever, Chills Eyes: reports: Reviewed and negative Ears: reports: Reviewed and negative Cardiac: reports: Chest pain / pressure. denies: Palpitations Respiratory: reports: Dyspnea GI: denies: Nausea, Vomiting : reports: Reviewed and negative Immunocompromised: denies: Immunocompromised PD PAST MEDICAL HISTORY - Past Medical History Cardiovascular: Other Endocrine/Autoimmune: Type 2 diabetes : Renal insuffiency HEENT: Chronic hearing loss Musculoskeletal: Osteoarthritis - Past Surgical History Past Surgical History: Yes General: Cholecystectomy Ortho: Hip replacement Cardiovascular: Vascular surgery HEENT: Tonsil/Adenoidectomy - Present Medications Home Medications: Ambulatory Orders Medication Instructions Recorded Confirmed Aspirin [Children's Aspirin] 81 mg PO BID 03/03/14 10/04/17 Furosemide [Lasix] 80 mg PO BID 03/03/14 10/04/17 Metoprolol Tartrate 50 mg PO BID 03/03/14 10/04/17 Acetaminophen 650 mg PO BID 01/31/17 10/04/17 Calcium Carbonate [Tums (Calcium 2,000 mg PO DAILY@1700 01/31/17 10/04/17 Carbonate 500mg)] Calcium Carbonate/Vitamin D3 1 tab PO BID 01/31/17 10/04/17 [Oyster Shell 500-Vit D3 200 Tb] Cholecalciferol (Vitamin D3) 1,000 units PO DAILY 01/31/17 10/04/17 [Vitamin D3] Ferrous Sulfate 325 mg PO DAILY 01/31/17 10/04/17 Loratadine [Claritin] 10 mg PO DAILY 01/31/17 10/04/17 Gabapentin 100 mg PO DAILY 02/22/17 10/04/17 Tramadol HCl [Ultram] 50 mg PO DAILY 10/04/17 10/04/17 cephALEXin [Cephalexin] 500 mg PO TID #15 tablet 10/04/17 - Allergies Allergies/Adverse Reactions: Allergies Allergy/AdvReac Type Severity Reaction Status Date / Time Penicillins Allergy Rash Verified 02/22/17 18:12 - Social History Does the pt smoke?: No Smoking Status: Never smoker Does the pt drink ETOH?: No Does the pt have substance abuse?: No - POLST Patient has POLST: Yes PD ED PE NORMAL - Vitals Vital signs reviewed: Yes - General General: Alert and oriented X 3, No acute distress - HEENT HEENT: Atraumatic - Neck Neck: Supple, no meningeal sign - Cardiac Cardiac: RRR, No murmur - Respiratory Respiratory: Clear bilaterally - Abdomen Abdomen: Soft, Non tender, Non distended - Derm Derm: Normal color, Warm and dry, No rash - Extremities Extremities: No deformity Results - Vitals Vitals: Vital Signs - 24 hr 06/05/18 06/05/18 16:22 18:00 Temperature 37.3 C Heart Rate 73 Respiratory 16 17 Rate Blood Pressure 200/65 H 173/63 H O2 Saturation 99 Oxygen O2 Source Room air - EKG (time done) 1624 Rate: Rate (enter#) (86) Rhythm: NSR QRS: LVH Ischemia: Q waves Compare to prior EKG: Unchanged from prior EKG - Labs Labs: Laboratory Tests 06/05/18 06/05/18 06/05/18 17:11 17:13 17:13 WBC 8.0 RBC 3.17 L Hgb 10.0 L Hct 31.2 L MCV 98.4 MCH 31.4 H MCHC 31.9 L RDW 16.8 H Plt Count 240 MPV 7.8 L Neut # (Auto) 5.0 Lymph # (Auto) 1.6 [place] # (Auto) 1.1 H Eos # (Auto) 0.3 Baso # (Auto) 0.1 Absolute Nucleated RBC 0.00 Nucleated RBC % 0.0 D-Dimer 449.8 H Sodium 139 Potassium 4.6 Chloride 112 H Carbon Dioxide 20 L Anion Gap 7.0 BUN 37 H Creatinine 2.9 H Estimated GFR (MDRD) 15 L Glucose 132 H Calcium 7.7 L Total Bilirubin 0.7 AST 18 ALT 12 Alkaline Phosphatase 122 H Troponin I Total Protein 6.0 L Albumin 2.8 L Globulin 3.2 Albumin/Globulin Ratio 0.9 L Lipase 19 L 06/05/18 06/05/18 17:13 19:03 WBC RBC Hgb Hct MCV MCH MCHC RDW Plt Count MPV Neut # (Auto) Lymph # (Auto) [place] # (Auto) Eos # (Auto) Baso # (Auto) Absolute Nucleated RBC Nucleated RBC % D-Dimer Sodium Potassium Chloride Carbon Dioxide Anion Gap BUN Creatinine Estimated GFR (MDRD) Glucose Calcium Total Bilirubin AST ALT Alkaline Phosphatase Troponin I < 0.04 < 0.04 Total Protein Albumin Globulin Albumin/Globulin Ratio Lipase - Rads (name of study) chest x-ray Radiology: Final report received (normal) PD MEDICAL DECISION MAKING - ED course Complexity details: reviewed old records, reviewed results, re-evaluated patient , considered differential, d/w patient ED course: Patient was seen and examined at bedside. ekg was performed. IV access was gained and labs were drawn. chest x-ray was ordered. Patient's preliminary diagnostics were within normal limits aside from an elevated d dimer. patient' s creatinine was too elevated for CT. Case was discussed with the hospitalist who agreed for observation for the patient. - Sepsis Event Vital Signs: Vital Signs - 24 hr 06/05/18 06/05/18 16:22 18:00 Temperature 37.3 C Heart Rate 73 Respiratory 16 17 Rate Blood Pressure 200/65 H 173/63 H O2 Saturation 99 Oxygen O2 Source Room air Departure - Departure Disposition: ED Place in Observation Clinical Impression: Chest pain Condition: Good
[2018-06-05 17:20] LABS: BASOPHILS # (AUTO) 0.1 10^3/uL (0.0-0.1); BASOPHILS % (AUTO) 1.1 %; EOSINOPHILS # (AUTO) 0.3 10^3/uL (0.0-0.7); EOSINOPHILS % (AUTO) 3.5 %; LYMPHOCYTES # (AUTO) 1.6 10^3/uL (1.5-3.5); LYMPHOCYTES % (AUTO) 19.8 %; MEAN CORPUSCULAR HEMOGLOBIN 31.4 pg (27.0-31.0); MEAN CORPUSCULAR HGB CONC 31.9 g/dL (32.0-36.0); MEAN CORPUSCULAR VOLUME 98.4 fL (81.0-99.0); MEAN PLATELET VOLUME 7.8 fL (7.9-10.8); MONOCYTES # (AUTO) 1.1 10^3/uL (0.0-1.0); MONOCYTES % (AUTO) 13.1 %; NEUTROPHILS % (AUTO) 62.5 %; PLT - PLATELET COUNT 240 10^3/uL (130-450); RED BLOOD COUNT 3.17 10^6/uL (4.20-5.40); RED CELL DISTRIBUTION WIDTH 16.8 % (12.0-15.0)
[2018-06-05 17:33] LABS: ALBUMIN 2.8 g/dL (3.2-5.5); ALBUMIN/GLOBULIN RATIO 0.9 (1.0-2.2); BILIRUBIN,TOTAL 0.7 mg/dL (0.2-1.0); CALCIUM 7.7 mg/dL (8.5-10.3); CREATININE 2.9 mg/dL (0.4-1.0)
--- NOTE | 2018-06-05 17:56 | XRAY Report ---
Procedure Date: 06/05/2018 Accession Number: [id number] / [id number] Procedure: XR - Chest 2 View X-Ray CPT Code: 54989 FULL RESULT: EXAM: CHEST RADIOGRAPHY EXAM DATE: 06/05/2018 05:31 PM. CLINICAL HISTORY: Chest pain. COMPARISON: CHEST 2 VIEW PA/LAT 01/30/2017. TECHNIQUE: 2 views. FINDINGS: Lungs/Pleura: Right upper lobe calcified granuloma, otherwise no focal opacities evident. Blunting of the posterior costophrenic angles. No pneumothorax. Normal volumes. Mediastinum: Heart and mediastinal contours are unremarkable. Other: No compression fractures. IMPRESSION: Small posterior pleural effusions, otherwise unremarkable 2-view chest radiography. [facility]
[2018-06-05] MEDS ORDERED: SODIUM CHLORIDE FLUSH 0.9% 10 ML SYRINGE IVP PRN (19:28)
[2018-06-05] MEDS ORDERED: ONDANSETRON ODT 4 MG TABLET TL PRN (19:28)
[2018-06-05] MEDS ORDERED: ACETAMINOPHEN 325 MG TABLET PO PRN (19:28)
[2018-06-05] MEDS ORDERED: ONDANSETRON 4 MG/2 ML VIAL IVP PRN (19:28)
[2018-06-05] MEDS ORDERED: oxyCODONE 5 MG TABLET PO PRN (19:28)
[2018-06-05] MEDS ORDERED: NITROGLYCERIN SL 0.4 MG TABLET SL PRN (19:31)
[2018-06-05] MEDS ORDERED: ENOXAPARIN 60 MG/0.6 ML SYRINGE SUBQ SCH ×2 (20:00→21:00)
[2018-06-05] MEDS ORDERED: SODIUM CHLORIDE 0.9% 1,000 ML IV SCH (20:00)
[2018-06-05] MEDS ORDERED: hydrALAZINE INJ 20 MG/ML VIAL IVP PRN (21:50)
[2018-06-05] MEDS ORDERED: FUROSEMIDE 40 MG TABLET PO SCH ×2 (22:00→22:39)
[2018-06-05] MEDS: amLODIPine 5 MG TABLET PO SCH (22:10)
[2018-06-05] MEDS: METOPROLOL TARTRATE 50 MG TABLET PO SCH (22:15)
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
[2018-06-06] MEDS: SODIUM CHLORIDE FLUSH 0.9% 10 ML SYRINGE IVP SCH ×2 (00:26→08:14)
[2018-06-06 06:22] LABS: CALCIUM 7.7 mg/dL (8.5-10.3); CREATININE 2.6 mg/dL (0.4-1.0)
[2018-06-06 07:46] VITALS: BP 167/75
[2018-06-06] MEDS: METOPROLOL TARTRATE 50 MG TABLET PO SCH (08:13)
[2018-06-06] MEDS: amLODIPine 5 MG TABLET PO SCH (08:13)
[2018-06-06] MEDS ORDERED: traMADol 50 MG TABLET PO SCH (09:00)
[2018-06-06] MEDS ORDERED: POLYETHYLENE GLYCOL 3350 17 GM PACKET PO SCH (09:00)
[2018-06-06] MEDS ORDERED: LORATADINE 10 MG TABLET PO SCH (09:00)
[2018-06-06] MEDS ORDERED: ASPIRIN EC 81 MG TABLET PO SCH (09:00)
[2018-06-06] MEDS ORDERED: GABAPENTIN 100 MG CAPSULE PO SCH (09:00)
--- NOTE | 2018-06-06 11:24 | Nuclear Medicine Report ---
Procedure Date: 06/06/2018 Accession Number: [id number] / [id number] Procedure: NM - Lung Vent/Perf V/Q CPT Code: FULL RESULT: EXAM: VENTILATION/PERFUSION SCAN (V/Q SCAN) EXAM DATE: 06/06/2018 10:53 AM. CLINICAL HISTORY: Pleuritic chest pain. Elevated D-dimer. COMPARISON: Chest 2 views 06/05/2018. TECHNIQUE: Patient was administered 34.0 mCi of technetium 99m DTPA aerosol by inhalation and 8 standard ventilation images of the lungs were obtained. Next, the patient was injected with 4.5 mCi of technetium 99m MAA intravenously and 8 standard perfusion images of the lungs were obtained. FINDINGS: Ventilation Scan: Heterogeneous tracer deposition, suggestive of COPD. Perfusion Scan: Mild heterogeneity in tracer distribution, similar to the ventilation scan. IMPRESSION: 1. Low probability for acute pulmonary embolism. 2. Heterogeneous tracer uptake on ventilation and perfusion scans, suggestive of COPD. RADIA
--- NOTE | 2018-06-06 12:20 | Discharge Plan ---
Discharge Plan Disposition: 01 Home, Self Care Condition: Good Prescriptions: amLODIPine [Norvasc] 10 mg PO DAILY #30 tablet Diet: Low Sodium Activity Restrictions: Activity as Tolerated Shower Restrictions: No Driving Restrictions: No Additional Instructions or Follow Up instructions: You presented to the ER with chest tightness and underwent tests including a Chest Xray, EKG, troponins, echocardiogram and V/Q scan all of which were negative. Your blood pressure was found to be very high and may be the reason for your tightness or this could be a muscular issue. We have prescribed you a new blood pressure medication to help to better control your blood pressure. No Smoking: If you smoke, Please STOP! Call for help. Follow-up with: EMMA CRUMP, [Primary Care Provider] -
--- NOTE | 2018-06-06 12:43 | Discharge Plan ---
"Discharge Plan for SNF / [facility] - DC Plan and Transition Orders Disposition: 01 Home, Self Care Condition: Good SNF Transition Orders: Admit to: [[facility]] under the care of Dr. Arevalo] Discharge Diagnosis: [1. Chest Pain 2. Hypertension 3. Chronic Kidney Disease 4. Anemia of chronic disease] Medicare Certification: I certify that Post Hospital care home care is medically necessary on a continuing basis for any of the conditions for which she/he is receiving care during hospitalization. Notify PCP of admission and forward orders to primary provider for signature. Weight on admission and [Monthly]. Call PCP immediately if weight increases by [10] pounds or if patient develops dyspnea, chest pain/tightness or edema. House Bowel Program: [Yes If no BM after 2 days, nurse may give M.O.M. 30ml PO PRN and /or ducolax Supp 1 ME and /or THEODORA 250mg P.O., and/or senna 1-2 tabs PO. On day 3 nurse may give repeat above order until residents constipation is resolved. Immunizations: Annual Influenza Vaccine: [Yes]. (between Jul 27 and February 23.) Unless allergy or already given Two-Step PPD: [Yes] per [facility] [id number] or appropriate documentation of approved exceptions Treatments & Other Orders: [None] Oxygen Orders: [None] Lab Tests or X-Rays Orders: [None] Orthopedic Orders: [None]. Medications: PLEASE REFER TO THE DISCHARGE MEDICATION LIST. Insulin Orders? [No] Diagnosis: Diabetes Initiate hypo and hyperglycemia protocols for BG <70 and BG >375. May check BG prn for signs/symptoms of dysglycemia. Frequency of BG checks: [None] Basal Insulin: [] Lantus 100 units / ml inject subq as follows: [] [] Other: [] Correction Insulin: - Select the type of insulin below [Choose: Novolog/Humalog]100 units /ml insulin inject subq per orders indicate below [] LOW DOSE [] MODERATE DOSE [] MODERATE/HIGH DOSE [] HIGH DOSE GB UNITS GB UNITS GB UNITS GB UNITS 61-140 0 UNITS 61-140 0 UNITS 61-140 0 UNITS 61-140 0 UNITS 141-175 1 UNITS 141-175 1 UNITS 141-175 2 UNITS 141-175 3 UNITS 176-225 2 UNITS 176-225 3 UNITS 176-225 4 UNITS 176-225 5 UNITS 226-275 3 UNITS 226-275 5 UNITS 226-275 6 UNITS 226-275 7 UNITS 276-325 4 UNITS 276-325 7 UNITS 276-325 8 UNITS 276-325 9 UNITS 326-375 5 UNITS 326-375 9 UNITS 326-375 10 UNITS 326-375 11 UNITS >375 CONTACT MD >375 CONTACT MD >375 CONTACT MD >375 CONTACT MD Custom Dosing: [Choose: None/Novolog/Humalog] 100 units/ml Insulin inject subq as follows: GB Units 61-140 [] Units 141-175 [] Units 176-225 [] Units 226-275 [] Units 276-325 []Units 326-375 [] Units >375 Contact MD Allergies and Adverse Reactions: Allergies Allergy/AdvReac Type Severity Reaction Status Date / Time Penicillins Allergy Rash Verified 02/22/17 18:12 - Medications New Prescriptions: amLODIPine [Norvasc] 10 mg PO DAILY #30 tablet - Diet Type: No added salt Texture: Regular Liquids: Thin May have monthly special meal: Yes - Therapies | Activity Rehabilitation Potential: Return to independent living Activity: Activity as Tolerated Weight Bearing: Full Weight Additional Instructions: You presented to the ER with chest tightness and underwent tests including a Chest Xray, EKG, troponins, echocardiogram and V/Q scan all of which were negative. Your blood pressure was found to be very high and may be the reason for your tightness or this could be a muscular issue. We have prescribed you a new blood pressure medication to help to better control your blood pressure. Follow Up: Follow up with your PCP if you continue to have symptoms."
--- NOTE | 2018-06-06 12:59 | DISCHARGE SUMMARY ---
Discharge Summary Admit Date: 06/05/18 Discharge Date: 06/06/18 Discharging Provider: Guero Tran MD Primary Care Provider: Master Arevalo MD Code Status: Do Not Attempt Resuscitation Condition at Discharge: Good Discharge Disposition: 01 Home, Self Care - DIAGNOSES Admission Diagnoses: 1. Chest pain 2. Anemia and chronic kidney disease 3. Chronic kidney disease stage IV Discharge Diagnoses with Status of Each Condition: 1. Chest pain: Stable 2. Hypertension: Guarded 3. Anemia and chronic disease: Stable 4. CKD stage IV: Stable - HPI History of Present Illness: She is an 87-year-old female who lives at [facility] since approximately 2013. She went to live there because of a history of falls. She had fallen several times in the antecedent years resulting in bilateral hip fractures, and a pelvic fracture. She has had an extensive workup to try and find out why she passes out and falls, but nothing was ever found. Her daughter felt that she would be safer at [facility]. Unfortunately she has fallen at [facility] as well and that was the pelvic fracture. She was last admitted January 2017 for altered mental status that was associated with probable hypoglycemia and IV insulin given and IV D50 to treat hyperkalemia. She does walk with a walker. She is not allowed to walk unaccompanied because of her history of falls. She still feeds herself. Requires help of the aides at [facility] to dress herself. They give her her medications. She loves living at [facility]. She describes a very supportive environment. Unfortunately she has a new roommate who is not doing well. The roommate seems to be dying. And is "rotting away". The roommate is covered in fentanyl patches to relieve her pain. 4 days ago, the roommate seem to have a crisis. A young psychiatric nursing assistant came in to look after this dying patient. She could not understand what the patient was saying. So Ms. Rodriguez, in an effort to help, went to her roommates bedside to see if she could understand with the roommate was saying and then explained that to the nurse's aid. The roommate was clear that she wanted to . She did not want to live life this way. She was tearful. Begging Ms. Rodriguez to tell them to let her go. Ms. Rodriguez was upset. She was horrified. She has never been around someone who is actively dying and it has been very distressing. She started crying herself and had to leave the room to walk down the hallway. As she sat in the window, looking out, trying to calm herself, she developed pleuritic chest tightness underneath her left breast. It is nonradiating. It lasts for minutes at a time and goes away quickly. It is not necessarily made any better by rest or stress and because she is a relatively sedentary person, is happening at rest more often than not. There is no fever, no chills. No nausea. No diaphoresis, no palpitations. The chest tightness is causing a little bit of shortness of breath. It is made worse by taking a deep breath. After 3 days of it she decided to come here to the hospital. Her troponins are -2 hours apart. EKG shows no acute changes. D -dimer was done and it is over 400. Unfortunately she has chronic kidney disease stage IV with occasional hyperkalemia is not a candidate for a dye study. As such, emergency room doctor has asked me to place her under observation status for a VQ scan in the morning and the third set of cardiac enzymes. Cardiac risk factors do include age, hypertension, but she never smoked, does not have hyperlipidemia, and does not have diabetes. - HOSPITAL COURSE Hospital Course: Patient was placed in observation for serial troponins and these were negative 4. The patient also underwent a VQ scan to rule out possible pulmonary embolism which was also negative. The patient also underwent an echocardiogram which had not been completed at the time of this discharge summary. The echocardiogram will be followed up by her primary care physician. The patient' s chest pain appeared to be likely secondary to uncontrolled hypertension as the patient's blood pressure on presentation was 218/81 and continues to be elevated in the emergency department. The patient had amlodipine added to her antihypertensive regimen which did improve her blood pressure while she was hospitalized but she was still continuing to run on the high side. The patient' s chest pain could have been musculoskeletal as well and the patient was advised to use Tylenol for pain if it does not improve with improvement in her blood pressure. If the patient's pain was to continue she was advised to see her primary care physician for a stress test. The patient was discharged in stable condition back to her home at [facility]. - ALLERGIES Allergies/Adverse Reactions: Allergies Allergy/AdvReac Type Severity Reaction Status Date / Time Penicillins Allergy Rash Verified 02/22/17 18:12 - MEDICATIONS Home Medications: Ambulatory Orders Medication Instructions Recorded Confirmed Aspirin [Children's Aspirin] 81 mg PO BID 03/03/14 06/05/18 Furosemide [Lasix] 40 mg PO BID 03/03/14 06/05/18 Metoprolol Tartrate 50 mg PO BID 03/03/14 06/05/18 Acetaminophen 650 mg PO BID 01/31/17 06/05/18 Calcium Carbonate [Tums (Calcium 2,000 mg PO DAILY@1700 01/31/17 06/05/18 Carbonate 500mg)] Ferrous Sulfate 325 mg PO DAILY 01/31/17 06/05/18 Loratadine [Claritin] 10 mg PO DAILY 01/31/17 06/05/18 Gabapentin 100 mg PO DAILY 02/22/17 06/05/18 Tramadol HCl [Ultram] 50 mg PO Q6H PRN 10/04/17 06/05/18 Cholecalciferol (Vitamin D3) 3,000 unit PO DAILY 06/05/18 06/05/18 [Vitamin D3] Doxazosin Mesylate 4 mg PO BID 06/05/18 06/05/18 Epoetin [Procrit] 4,000 unit SUBQ Q30D 06/05/18 06/06/18 Fludrocortisone [Florinef] 0.1 mg PO MOWEFR@0800 06/05/18 06/06/18 HYDROmorphone [Dilaudid] 2 mg PO Q6H PRN 06/05/18 06/05/18 Multivitamin [Multiple Vitamins] 1 tab PO DAILY 06/05/18 06/05/18 amLODIPine [Norvasc] 10 mg PO DAILY #30 tablet 06/06/18 - PHYSICAL EXAM AT DISCHARGE General Appearance: positive: No acute distress, Alert Eyes Bilateral: positive: Normal inspection, PERRL, EOMI, No lid inflammation, Conjunctivae nml, No scleral icterus ENT: positive: ENT inspection nml, Pharynx nml, No signs of dehydration. negative: Purulent nasal drainage, Pharyngeal erythema, Oral lesions Neck: positive: Nml inspection, Thyroid nml, No JVD, Trachea midline. negative : Thyromegaly, Lymphadenopathy (R), Lymphadenopathy (L), Carotid bruit, Tracheal deviation Respiratory: positive: Chest non-tender, No respiratory distress, Breath sounds nml. negative: Wheezes, Rales, Rhonchi Cardiovascular: positive: Regular rate & rhythm, No murmur, No gallop Peripheral Pulses: positive: 2+ Abdomen: positive: Non-tender, No organomegaly, Nml bowel sounds, No distention. negative: Guarding, Rebound, Hepatomegaly Back: positive: Nml inspection. negative: CVA tenderness (R), CVA tenderness (L ) Skin: positive: Color nml, No rash, Warm. negative: Cyanosis, Diaphoresis, Pallor Extremities: positive: Non-tender, Full ROM, Nml appearance, No pedal edema Neurologic/Psychiatric: positive: Oriented x3, CN's nml (2-12), Motor nml, Sensation nml, Mood/affect nml - LABS Result Diagrams: 06/05/18 17:13 06/06/18 06:00 Other Lab Results: Laboratory Results WBC 8.0 x10^3/uL (4.8-10.8) 06/05/18 17:13 RBC 3.17 10^6/uL (4.20-5.40) L 06/05/18 17:13 Hgb 10.0 g/dL (12.0-16.0) L 06/05/18 17:13 Hct 31.2 % (37.0-47.0) L 06/05/18 17:13 MCV 98.4 fL (81.0-99.0) 06/05/18 17:13 MCH 31.4 pg (27.0-31.0) H 06/05/18 17:13 MCHC 31.9 g/dL (32.0-36.0) L 06/05/18 17:13 RDW 16.8 % (12.0-15.0) H 06/05/18 17:13 Plt Count 240 10^3/uL (130-450) 06/05/18 17:13 MPV 7.8 fL (7.9-10.8) L 06/05/18 17:13 Neut # (Auto) 5.0 10^3/uL (1.5-6.6) 06/05/18 17:13 Lymph # (Auto) 1.6 10^3/uL (1.5-3.5) 06/05/18 17:13 Hickman # (Auto) 1.1 10^3/uL (0.0-1.0) H 06/05/18 17:13 Eos # (Auto) 0.3 10^3/uL (0.0-0.7) 06/05/18 17:13 Baso # (Auto) 0.1 10^3/uL (0.0-0.1) 06/05/18 17:13 Absolute Nucleated RBC 0.00 x10^3/uL 06/05/18 17:13 Nucleated RBC % 0.0 /100WBC 06/05/18 17:13 D-Dimer 449.8 ng/mL (200.0-255.0) H 06/05/18 17:11 Sodium 141 mmol/L (135-145) 06/06/18 06:00 Potassium 4.1 mmol/L (3.5-5.0) 06/06/18 06:00 Chloride 116 mmol/L (101-111) H 06/06/18 06:00 Carbon Dioxide 19 mmol/L (21-32) L 06/06/18 06:00 Anion Gap 6.0 (6-13) 06/06/18 06:00 BUN 38 mg/dL (6-20) H 06/06/18 06:00 Creatinine 2.6 mg/dL (0.4-1.0) H 06/06/18 06:00 Estimated GFR (MDRD) 17 (>89) L 06/06/18 06:00 Glucose 98 mg/dL (70-100) 06/06/18 06:00 Calcium 7.7 mg/dL (8.5-10.3) L 06/06/18 06:00 Total Bilirubin 0.7 mg/dL (0.2-1.0) 06/05/18 17:13 AST 18 IU/L (10-42) 06/05/18 17:13 ALT 12 IU/L (10-60) 06/05/18 17:13 Alkaline Phosphatase 122 IU/L (42-121) H 06/05/18 17:13 Troponin I 0.04 ng/mL (<0.49) 06/06/18 06:00 Total Protein 6.0 g/dL (6.7-8.2) L 06/05/18 17:13 Albumin 2.8 g/dL (3.2-5.5) L 06/05/18 17:13 Globulin 3.2 g/dL (2.1-4.2) 06/05/18 17:13 Albumin/Globulin Ratio 0.9 (1.0-2.2) L 06/05/18 17:13 Lipase 19 U/L (22-51) L 06/05/18 17:13 - DIAGNOSTIC IMAGING Diagnostic Imaging Results: Final report reviewed Diagnostic Imaging Results Comments: Chest x-ray Impression: Small posterior pleural effusions, otherwise unremarkable. 2 view chest radiography. Lung scan VQ nuclear medicine Impression: 1. Low probability for acute pulmonary embolism. 2. Heterogenous tracer uptake on ventilation and perfusion scans, suggestive of COPD. - FOLLOW UP Follow Up: Patient was discharged back to [facility] and will follow up with her primary care physician if her chest tightness continues. Patient may need PFTs in the future as her VQ scan did show possible COPD. The patient may also need a stress test in the future if her chest tightness does continue. The patient was started on a new antihypertensive medication and amlodipine as the patient' s chest tightness was thought to be secondary to elevated blood pressure. - TIME SPENT Time Spent in Discharge (Minutes): 35
== END 2018-06-06 15:21 | disposition home or self-care (01) ==
LOC: EDUNIT# → ED 16:14 → SUPCPDRO 16:14 → OBS 19:28
PROVIDERS: ADMIT Specialist; ATTEND Internal Medicine
DX: R07.9 Chest pain, unspecified (principal); I13.0 Hypertensive heart and chronic kidney disease with heart failure and stage 1 through stage 4 chronic kidney disease, or unspecified chronic kidney disease; E11.22 Type 2 diabetes mellitus with diabetic chronic kidney disease; I50.9 Heart failure, unspecified; N18.4 Chronic kidney disease, stage 4 (severe); I49.9 Cardiac arrhythmia, unspecified; D63.1 Anemia in chronic kidney disease; G31.84 Mild cognitive impairment of uncertain or unknown etiology; E11.42 Type 2 diabetes mellitus with diabetic polyneuropathy; K21.9 Gastro-esophageal reflux disease without esophagitis; H91.90 Unspecified hearing loss, unspecified ear; M19.90 Unspecified osteoarthritis, unspecified site; R32 Unspecified urinary incontinence; Z79.82 Long term (current) use of aspirin; Z79.01 Long term (current) use of anticoagulants; Z79.891 Long term (current) use of opiate analgesic; Z79.899 Other long term (current) drug therapy; I25.2 Old myocardial infarction; Z91.81 History of falling; Z96.643 Presence of artificial hip joint, bilateral; Z87.440 Personal history of urinary (tract) infections; Z87.81 Personal history of (healed) traumatic fracture
CPT/HCPCS: 36415; 71046; 78582; 80048; 80053; 83690; 84484; 85025; 85379; 93005; 93306; 96360; 96361; 96372; 99284; A9270; G0378; J1650

== ENCOUNTER 2018-07-15 13:45 | Outpatient (CLI) | payer MEDICARE, MEDICAID ==
[2018-07-15 19:42] LABS: CREATININE 2.4 mg/dL (0.4-1.0)
== END 2018-07-15 13:46 | disposition home or self-care (01) ==
LOC: LAB.R 13:45
DX: I50.9 Heart failure, unspecified (principal)
CPT/HCPCS: 80048

== ENCOUNTER 2018-08-27 21:35 | Outpatient (CLI) | payer MEDICARE, MEDICAID ==
[2018-08-28 00:47] LABS: BASOPHILS % (AUTO) 0.5 %; EOSINOPHILS # (AUTO) 0.3 10^3/uL (0.0-0.7); EOSINOPHILS % (AUTO) 3.9 %; HGB - HEMOGLOBIN 8.6 g/dL (12.0-16.0); LYMPHOCYTES # (AUTO) 1.1 10^3/uL (1.5-3.5); LYMPHOCYTES % (AUTO) 14.9 %; MEAN CORPUSCULAR HGB CONC 33.2 g/dL (32.0-36.0); MEAN CORPUSCULAR VOLUME 96.5 fL (81.0-99.0); MEAN PLATELET VOLUME 8.4 fL (7.9-10.8); MONOCYTES # (AUTO) 0.8 10^3/uL (0.0-1.0); MONOCYTES % (AUTO) 11.6 %; NEUTROPHILS % (AUTO) 69.1 %; PLT - PLATELET COUNT 169 10^3/uL (130-450); RED BLOOD COUNT 2.67 10^6/uL (4.20-5.40); RED CELL DISTRIBUTION WIDTH 16.6 % (12.0-15.0); WHITE BLOOD COUNT 7.2 x10^3/uL (4.8-10.8)
[2018-08-28 00:49] LABS: CALCIUM 7.8 mg/dL (8.5-10.3); CREATININE 3.8 mg/dL (0.4-1.0)
== END 2018-08-27 21:36 | disposition home or self-care (01) ==
LOC: LAB.R 21:35
DX: E87.6 Hypokalemia (principal); I50.9 Heart failure, unspecified; N18.9 Chronic kidney disease, unspecified
CPT/HCPCS: 80048; 85025

== ENCOUNTER 2018-08-31 08:00 | Outpatient (CLI) | payer MEDICARE, MEDICAID ==
[2018-08-31 18:05] LABS: CALCIUM 7.7 mg/dL (8.5-10.3); CREATININE 3.6 mg/dL (0.4-1.0)
== END 2018-08-31 08:01 | disposition home or self-care (01) ==
LOC: LAB.R 08:00
PROVIDERS: ATTEND Family Medicine
DX: N18.9 Chronic kidney disease, unspecified (principal)
CPT/HCPCS: 80048

== ENCOUNTER 2018-09-05 08:00 | Outpatient (CLI) | payer MEDICARE, MEDICAID ==
[2018-09-05 09:35] LABS: BASOPHILS % (AUTO) 0.5 %; EOSINOPHILS # (AUTO) 0.3 10^3/uL (0.0-0.7); EOSINOPHILS % (AUTO) 5.1 %; HGB - HEMOGLOBIN 8.5 g/dL (12.0-16.0); LYMPHOCYTES # (AUTO) 1.4 10^3/uL (1.5-3.5); LYMPHOCYTES % (AUTO) 20.9 %; MEAN CORPUSCULAR HEMOGLOBIN 31.6 pg (27.0-31.0); MEAN CORPUSCULAR VOLUME 98.8 fL (81.0-99.0); MEAN PLATELET VOLUME 8.3 fL (7.9-10.8); MONOCYTES # (AUTO) 0.7 10^3/uL (0.0-1.0); MONOCYTES % (AUTO) 9.9 %; NEUTROPHILS # (AUTO) 4.3 10^3/uL (1.5-6.6); NEUTROPHILS % (AUTO) 63.6 %; PLT - PLATELET COUNT 181 10^3/uL (130-450); RED CELL DISTRIBUTION WIDTH 16.7 % (12.0-15.0); WHITE BLOOD COUNT 6.8 x10^3/uL (4.8-10.8)
[2018-09-05 09:48] LABS: ALBUMIN 2.8 g/dL (3.2-5.5); BILIRUBIN,TOTAL 0.6 mg/dL (0.2-1.0); CALCIUM 8.1 mg/dL (8.5-10.3); TOTAL PROTEIN 5.6 g/dL (6.7-8.2)
== END 2018-09-05 08:01 | disposition home or self-care (01) ==
LOC: LAB.R 08:00
DX: N18.9 Chronic kidney disease, unspecified (principal); D64.9 Anemia, unspecified
CPT/HCPCS: 80053; 85025

== ENCOUNTER 2018-09-10 23:01 | Outpatient (CLI) | payer MEDICARE, MEDICAID ==
[2018-09-10 11:57] LABS: BASOPHILS % (AUTO) 0.2 %; EOSINOPHILS # (AUTO) 0.3 10^3/uL (0.0-0.7); EOSINOPHILS % (AUTO) 1.9 %; HGB - HEMOGLOBIN 8.1 g/dL (12.0-16.0); LYMPHOCYTES % (AUTO) 5.3 %; MEAN CORPUSCULAR HEMOGLOBIN 31.1 pg (27.0-31.0); MEAN CORPUSCULAR VOLUME 100.2 fL (81.0-99.0); MEAN PLATELET VOLUME 9.2 fL (7.9-10.8); MONOCYTES # (AUTO) 1.4 10^3/uL (0.0-1.0); MONOCYTES % (AUTO) 7.8 %; NEUTROPHILS # (AUTO) 15.4 10^3/uL (1.5-6.6); NEUTROPHILS % (AUTO) 84.8 %; PLT - PLATELET COUNT 165 10^3/uL (130-450); RED BLOOD COUNT 2.62 10^6/uL (4.20-5.40); RED CELL DISTRIBUTION WIDTH 16.5 % (12.0-15.0); WHITE BLOOD COUNT 18.2 x10^3/uL (4.8-10.8)
[2018-09-10 12:06] LABS: CREATININE 3.6 mg/dL (0.4-1.0)
== END 2018-09-10 23:02 | disposition home or self-care (01) ==
LOC: LAB.R 23:01
DX: N18.9 Chronic kidney disease, unspecified (principal); D64.9 Anemia, unspecified
CPT/HCPCS: 80048; 85025